=== PATIENT | male | born 1955 | race Caucasian/White ===

== ENCOUNTER 2018-12-06 18:48 | Inpatient (IN) | payer OTHER, BC ==
[2018-12-06 19:22] LABS: ADD MAN DIFF? NO
[2018-12-06 19:27] LABS: BASOPHIL # 0.1 10^3/ul (0.0-0.1); BASOPHILS % 0.3 % (0.0-2.0); EOSINOPHILS # 0.1 10^3/ul (0.0-0.5); EOSINOPHILS % 0.2 % (0.0-7.0); HEMATOCRIT 41.2 % (42.0-52.0); HEMOGLOBIN 13.7 g/dl (14.0-18.0); LYMPHOCYTES # 0.7 10^3/ul (0.8-2.9); LYMPHOCYTES % 3.2 % (15.0-51.0); MEAN CORPUSCULAR HEMOGLOBIN 30.8 pg (29.0-33.0); MEAN CORPUSCULAR HGB CONC 33.3 g/dl (32.0-37.0); MEAN CORPUSCULAR VOLUME 92.6 fl (82.0-101.0); MEAN PLATELET VOLUME 9.6 fl (7.4-10.4); MONOCYTE # 1.4 10^3/ul (0.3-0.9); MONOCYTES % 6.7 % (0.0-11.0); NEUTROPHIL # 18.3 10^3/ul (1.6-7.5); NEUTROPHILS % 89.1 % (39.0-77.0); PLATELET COUNT 291 10^3/UL (140-415); RED BLOOD COUNT 4.45 10^6/ul (4.70-6.10); RED CELL DISTRIBUTION WIDTH 12.4 % (11.5-14.5)
[2018-12-06 19:27] LABS: WHITE BLOOD COUNT 20.6 10^3/ul (4.8-10.8)
[2018-12-06] MEDS: SODIUM CHLORIDE 0.9% 1L BAG IV* (19:37)
[2018-12-06] MEDS: CEFTRIAXONE 1 GM/50 ML (PMX) 50 ML IVPB (19:38)
[2018-12-06] MEDS: ACETAMINOPHEN 325 MG TAB PO (19:38)
[2018-12-06 19:44] LABS: ALANINE AMINOTRANSFERASE 15 IU/L (13-69); ALBUMIN 4.7 g/dl (3.3-4.9); ALBUMIN/GLOBULIN RATIO 1.27; ALKALINE PHOSPHATASE 84 IU/L (42-121); ANION GAP 12 (5-13); ASPARTATE AMINO TRANSFERASE 22 IU/L (15-46); BILIRUBIN,INDIRECT 0.5 mg/dl (0-1.1); BILIRUBIN,TOTAL 0.5 mg/dl (0.2-1.3); BLOOD UREA NITROGEN 16 mg/dl (7-20); CALCIUM 9.5 mg/dl (8.4-10.2); CARBON DIOXIDE 26 mmol/L (21-31); CHLORIDE 100 mmol/L (97-110); CREATININE 1.15 mg/dl (0.61-1.24); Estimated GFR > 60 mL/min (>60); GLUCOSE 98 mg/dl (70-220); POTASSIUM 4.4 mmol/L (3.5-5.1); SODIUM 138 mmol/L (135-144); TOTAL PROTEIN 8.4 g/dl (6.1-8.1)
[2018-12-06 19:48] LABS: INR 0.88; PT RATIO 0.9
[2018-12-06 19:49] LABS: PARTIAL THROMBOPLASTIN TIME 25.7 Sec (23.0-35.0)
[2018-12-06 19:55] LABS: TROPONIN-I < 0.012 ng/ml (0.000-0.120)
[2018-12-06 19:59] LABS: ADD UMIC NO; UR ASCORBIC ACID NEGATIVE (NEGATIVE); UR BILIRUBIN (Dip) NEGATIVE (NEGATIVE); UR BLOOD (Dip) NEGATIVE (NEGATIVE); UR CLARITY CLEAR (CLEAR); UR COLOR STRAW (YELLOW); UR GLUCOSE (Dip) NEGATIVE (NEGATIVE); UR KETONES (Dip) TRACE mg/dL (NEGATIVE); UR LEUKOCYTE ESTERASE (Dip) NEGATIVE Leu/ul (NEGATIVE); UR NITRITE (Dip) NEGATIVE (NEGATIVE); UR SPECIFIC GRAVITY (Dip) 1.012 (1.003-1.030); UR TOTAL PROTEIN (Dip) NEGATIVE (NEGATIVE); UR UROBILINOGEN (Dip) NEGATIVE (NEGATIVE)
[2018-12-06] MEDS ORDERED: ONDANSETRON 4 MG INJ IV (20:30)
[2018-12-06] MEDS: BELLADONNA/PHENOBARBITAL TAB PO (20:37)
[2018-12-06] MEDS: AZITHROMYCIN 500MG/NS (PMX) 250 ML IVPB (20:51)
[2018-12-06] MEDS: LIDOCAINE/MYLANTA 40 ML BTL PO (20:51)
[2018-12-07] MEDS ORDERED: NACL 0.9% 3 ML SYG IV
[2018-12-07] MEDS ORDERED: IPRATROPIUM (NEB) 0.5 MG/2.5 ML AMP NEB
[2018-12-07] MEDS ORDERED: ZOLPIDEM 5 MG TAB PO
[2018-12-07] MEDS: SOD CHLORIDE 0.9% 1,000 ML IV ×2 (00:09→10:36)
[2018-12-07 00:34] LABS: LACTIC ACID 0.8 mmol/L (0.5-2.0)
[2018-12-07] MEDS: DIPHENHYDRAMINE 50 MG CAP PO (01:18)
[2018-12-07] MEDS: ACETAMINOPHEN 325 MG TAB PO ×4 (01:40→21:43)
[2018-12-07] MEDS: CEFTRIAXONE 1 GM/50 ML (PMX) 50 ML IVPB (06:00)
[2018-12-07] MEDS: PANTOPRAZOLE (EC) 40 MG TAB PO (06:00)
[2018-12-07 06:23] LABS: ADD MAN DIFF? NO
[2018-12-07 06:31] LABS: WHITE BLOOD COUNT 22.9 10^3/ul (4.8-10.8)
[2018-12-07 06:31] LABS: ABNORMAL IP MESSAGE 1; BASOPHILS % 0.2 % (0.0-2.0); HEMATOCRIT 37.3 % (42.0-52.0); HEMOGLOBIN 12.2 g/dl (14.0-18.0); LYMPHOCYTES # 0.3 10^3/ul (0.8-2.9); LYMPHOCYTES % 1.2 % (15.0-51.0); MEAN CORPUSCULAR HEMOGLOBIN 30.8 pg (29.0-33.0); MEAN CORPUSCULAR HGB CONC 32.7 g/dl (32.0-37.0); MEAN CORPUSCULAR VOLUME 94.2 fl (82.0-101.0); MEAN PLATELET VOLUME 10.3 fl (7.4-10.4); MONOCYTE # 1.3 10^3/ul (0.3-0.9); MONOCYTES % 5.4 % (0.0-11.0); NEUTROPHIL # 21.2 10^3/ul (1.6-7.5); NEUTROPHILS % 92.3 % (39.0-77.0); PLATELET COUNT 225 10^3/UL (140-415); POSITIVE DIFF @See below; RED BLOOD COUNT 3.96 10^6/ul (4.70-6.10); RED CELL DISTRIBUTION WIDTH 12.3 % (11.5-14.5)
[2018-12-07 06:59] LABS: ALANINE AMINOTRANSFERASE 16 IU/L (13-69); ALBUMIN 3.6 g/dl (3.3-4.9); ALBUMIN/GLOBULIN RATIO 1.24; ALKALINE PHOSPHATASE 54 IU/L (42-121); ANION GAP 8 (5-13); ASPARTATE AMINO TRANSFERASE 18 IU/L (15-46); BLOOD UREA NITROGEN 13 mg/dl (7-20); CALCIUM 8.4 mg/dl (8.4-10.2); CARBON DIOXIDE 27 mmol/L (21-31); CHLORIDE 104 mmol/L (97-110); CREATININE 0.99 mg/dl (0.61-1.24); Estimated GFR > 60 mL/min (>60); GLUCOSE 93 mg/dl (70-220); MAGNESIUM 2.1 mg/dl (1.7-2.5); PHOSPHORUS 4.6 mg/dl (2.5-4.9); POTASSIUM 4.9 mmol/L (3.5-5.1); SODIUM 139 mmol/L (135-144); TOTAL PROTEIN 6.5 g/dl (6.1-8.1)
[2018-12-07] MEDS: HEPARIN 5,000 UNIT/1 ML VIAL SC ×2 (08:31→20:32)
[2018-12-07] MEDS ORDERED: NON-FORMULARY/PATIENT OWN MED (Omeprazole* (Prilosec*) 20 MG) PO (09:00)
[2018-12-07 10:23] LABS: HAAIG REFLEX REFLEX FILED
[2018-12-07] MEDS ORDERED: VANCOMYCIN IV PER PHARMACY XX (10:30)
[2018-12-07] MEDS: LEVOFLOXACIN 500MG/D5W (PMX) 100 ML IVPB (10:37)
[2018-12-07] MEDS: LISINOPRIL 20 MG TAB PO (10:56)
[2018-12-07] MEDS ORDERED: LEVOFLOXACIN 750MG/D5W (PMX) 150 ML IVPB (11:00)
[2018-12-07 11:16] LABS: HEPATITIS B SURFACE ANTIGEN NEGATIVE (NEGATIVE)
[2018-12-07 11:34] LABS: HEPATITIS B CORE ANTIBODY NEGATIVE (NEGATIVE); HEPATITIS C VIRAL ANTIBODY NEGATIVE (NEGATIVE); HIV 1&2 ANTIBODY NEGATIVE (NEGATIVE)
[2018-12-07] MEDS: VANCOMYCIN HCL 1.5 GM in SOD CHLORIDE 0.9% 250 ML IVPB (12:41)
[2018-12-07] MEDS: ONDANSETRON 4 MG INJ IV (13:25)
[2018-12-07] MEDS: IBUPROFEN 400 MG TAB PO (20:31)
[2018-12-07] MEDS: ATORVASTATIN 10 MG TAB PO (20:31)
[2018-12-07] MEDS ORDERED: AZITHROMYCIN 500MG/NS (PMX) 250 ML IVPB (21:00)
[2018-12-07] MEDS: DIPHENHYDRAMINE 25 MG CAP PO (21:43)
[2018-12-08] MEDS: VANCOMYCIN 1 GM 250 ML IVPB ×2 (00:32→12:57)
[2018-12-08] MEDS: PANTOPRAZOLE (EC) 40 MG TAB PO (05:42)
[2018-12-08 05:45] LABS: ADD MAN DIFF? NO; BASOPHILS % 0.2 % (0.0-2.0); EOSINOPHILS % 0.1 % (0.0-7.0); HEMATOCRIT 34.5 % (42.0-52.0); HEMOGLOBIN 11.3 g/dl (14.0-18.0); LYMPHOCYTES # 0.6 10^3/ul (0.8-2.9); LYMPHOCYTES % 3.6 % (15.0-51.0); MEAN CORPUSCULAR HEMOGLOBIN 30.8 pg (29.0-33.0); MEAN CORPUSCULAR HGB CONC 32.8 g/dl (32.0-37.0); MEAN PLATELET VOLUME 10.8 fl (7.4-10.4); MONOCYTE # 1.2 10^3/ul (0.3-0.9); MONOCYTES % 6.6 % (0.0-11.0); NEUTROPHIL # 15.4 10^3/ul (1.6-7.5); NEUTROPHILS % 88.4 % (39.0-77.0); PLATELET COUNT 191 10^3/UL (140-415); RED BLOOD COUNT 3.67 10^6/ul (4.70-6.10); RED CELL DISTRIBUTION WIDTH 12.9 % (11.5-14.5)
[2018-12-08 05:45] LABS: WHITE BLOOD COUNT 17.5 10^3/ul (4.8-10.8)
[2018-12-08] MEDS: SOD CHLORIDE 0.9% 1,000 ML IV ×2 (05:47→12:10)
[2018-12-08 06:34] LABS: ANION GAP 10 (5-13); BLOOD UREA NITROGEN 15 mg/dl (7-20); CALCIUM 8.1 mg/dl (8.4-10.2); CARBON DIOXIDE 27 mmol/L (21-31); CHLORIDE 102 mmol/L (97-110); CREATININE 1.38 mg/dl (0.61-1.24); Estimated GFR 52 mL/min (>60); GLUCOSE 114 mg/dl (70-220); MAGNESIUM 2.1 mg/dl (1.7-2.5); PHOSPHORUS 3.5 mg/dl (2.5-4.9); POTASSIUM 4.2 mmol/L (3.5-5.1); SODIUM 139 mmol/L (135-144)
[2018-12-08] MEDS: ACETAMINOPHEN 325 MG TAB PO ×3 (08:04→20:31)
[2018-12-08] MEDS: HEPARIN 5,000 UNIT/1 ML VIAL SC ×2 (08:06→20:25)
[2018-12-08] MEDS: LISINOPRIL 20 MG TAB PO (08:08)
[2018-12-08] MEDS: ASPIRIN 81 MG TAB PO (08:11)
[2018-12-08] MEDS: CHOLECALCIFEROL 1,000 UNIT TAB PO (08:11)
[2018-12-08] MEDS: LEVOFLOXACIN 500MG/D5W (PMX) 100 ML IVPB (10:02)
[2018-12-08] MEDS: CEFTRIAXONE 2 GM/50 ML (PMX) 50 ML IVPB (15:19)
[2018-12-08] MEDS ORDERED: DIPHENHYDRAMINE 25 MG CAP (20:01)
[2018-12-08] MEDS: ATORVASTATIN 10 MG TAB PO (20:30)
[2018-12-09] MEDS: SOD CHLORIDE 0.9% 1,000 ML IV ×2 (01:47→23:26)
[2018-12-09] MEDS: ACETAMINOPHEN 325 MG TAB PO ×2 (02:09→18:52)
[2018-12-09 06:09] LABS: ADD MAN DIFF? NO
[2018-12-09] MEDS: PANTOPRAZOLE (EC) 40 MG TAB PO (06:09)
[2018-12-09 06:14] LABS: BASOPHILS % 0.1 % (0.0-2.0); EOSINOPHILS # 0.1 10^3/ul (0.0-0.5); EOSINOPHILS % 0.5 % (0.0-7.0); HEMATOCRIT 33.2 % (42.0-52.0); HEMOGLOBIN 10.9 g/dl (14.0-18.0); LYMPHOCYTES # 0.7 10^3/ul (0.8-2.9); LYMPHOCYTES % 4.5 % (15.0-51.0); MEAN CORPUSCULAR HGB CONC 32.8 g/dl (32.0-37.0); MEAN CORPUSCULAR VOLUME 94.3 fl (82.0-101.0); MEAN PLATELET VOLUME 10.9 fl (7.4-10.4); MONOCYTE # 1.3 10^3/ul (0.3-0.9); MONOCYTES % 8.8 % (0.0-11.0); NEUTROPHIL # 12.6 10^3/ul (1.6-7.5); NEUTROPHILS % 85.6 % (39.0-77.0); PLATELET COUNT 182 10^3/UL (140-415); RED BLOOD COUNT 3.52 10^6/ul (4.70-6.10); RED CELL DISTRIBUTION WIDTH 12.8 % (11.5-14.5)
[2018-12-09 06:14] LABS: WHITE BLOOD COUNT 14.7 10^3/ul (4.8-10.8)
[2018-12-09 07:00] LABS: ANION GAP 10 (5-13); BLOOD UREA NITROGEN 10 mg/dl (7-20); CALCIUM 8.4 mg/dl (8.4-10.2); CARBON DIOXIDE 27 mmol/L (21-31); CHLORIDE 104 mmol/L (97-110); CREATININE 1.04 mg/dl (0.61-1.24); Estimated GFR > 60 mL/min (>60); GLUCOSE 106 mg/dl (70-220); MAGNESIUM 2.2 mg/dl (1.7-2.5); PHOSPHORUS 2.8 mg/dl (2.5-4.9); POTASSIUM 3.7 mmol/L (3.5-5.1); SODIUM 141 mmol/L (135-144)
[2018-12-09] MEDS: CHOLECALCIFEROL 1,000 UNIT TAB PO (09:13)
[2018-12-09] MEDS: ASPIRIN 81 MG TAB PO (09:13)
[2018-12-09] MEDS: LISINOPRIL 20 MG TAB PO (09:13)
[2018-12-09] MEDS: HEPARIN 5,000 UNIT/1 ML VIAL SC ×2 (09:21→20:15)
[2018-12-09] MEDS ORDERED: DIPHENHYDRAMINE 50 MG CAP PO (13:30)
[2018-12-09] MEDS: CEFTRIAXONE 2 GM/50 ML (PMX) 50 ML IVPB (14:25)
[2018-12-09] MEDS: FLUTICASONE 0.05% 16 GM NAS SPRAY NASAL ×2 (14:25→23:00)
[2018-12-09] MEDS: ALPRAZOLAM 0.25 MG TAB PO (20:10)
[2018-12-09] MEDS: ATORVASTATIN 10 MG TAB PO (20:10)
[2018-12-10] MEDS: PANTOPRAZOLE (EC) 40 MG TAB PO (05:43)
[2018-12-10 06:05] LABS: ADD MAN DIFF? NO
[2018-12-10 06:19] LABS: WHITE BLOOD COUNT 11.4 10^3/ul (4.8-10.8)
[2018-12-10 06:19] LABS: BASOPHILS % 0.3 % (0.0-2.0); EOSINOPHILS # 0.2 10^3/ul (0.0-0.5); EOSINOPHILS % 1.8 % (0.0-7.0); HEMATOCRIT 33.7 % (42.0-52.0); HEMOGLOBIN 11.2 g/dl (14.0-18.0); LYMPHOCYTES # 0.7 10^3/ul (0.8-2.9); LYMPHOCYTES % 6.3 % (15.0-51.0); MEAN CORPUSCULAR HEMOGLOBIN 30.8 pg (29.0-33.0); MEAN CORPUSCULAR HGB CONC 33.2 g/dl (32.0-37.0); MEAN CORPUSCULAR VOLUME 92.6 fl (82.0-101.0); MEAN PLATELET VOLUME 10.9 fl (7.4-10.4); MONOCYTE # 1.2 10^3/ul (0.3-0.9); MONOCYTES % 10.7 % (0.0-11.0); NEUTROPHIL # 9.1 10^3/ul (1.6-7.5); NEUTROPHILS % 80.2 % (39.0-77.0); PLATELET COUNT 235 10^3/UL (140-415); RED BLOOD COUNT 3.64 10^6/ul (4.70-6.10); RED CELL DISTRIBUTION WIDTH 12.4 % (11.5-14.5)
[2018-12-10 06:43] LABS: ANION GAP 9 (5-13); BLOOD UREA NITROGEN 7 mg/dl (7-20); CALCIUM 8.6 mg/dl (8.4-10.2); CARBON DIOXIDE 28 mmol/L (21-31); CHLORIDE 104 mmol/L (97-110); CREATININE 0.92 mg/dl (0.61-1.24); Estimated GFR > 60 mL/min (>60); GLUCOSE 100 mg/dl (70-220); MAGNESIUM 2.1 mg/dl (1.7-2.5); PHOSPHORUS 3.3 mg/dl (2.5-4.9); POTASSIUM 3.3 mmol/L (3.5-5.1); SODIUM 141 mmol/L (135-144)
[2018-12-10] MEDS: LISINOPRIL 20 MG TAB PO (09:45)
[2018-12-10] MEDS: ASPIRIN 81 MG TAB PO (09:45)
[2018-12-10] MEDS: CHOLECALCIFEROL 1,000 UNIT TAB PO (09:45)
[2018-12-10] MEDS: FLUTICASONE 0.05% 16 GM NAS SPRAY NASAL ×2 (09:45→20:12)
[2018-12-10] MEDS: HEPARIN 5,000 UNIT/1 ML VIAL SC ×2 (09:46→20:12)
[2018-12-10] MEDS: POTASSIUM CHLORIDE (SR) 20 MEQ TAB PO (11:14)
[2018-12-10] MEDS: GUAIFENESIN/DM 5ML CUP PO ×2 (11:14→18:16)
[2018-12-10] MEDS: ACETAMINOPHEN 325 MG TAB PO (14:56)
[2018-12-10] MEDS: CEFTRIAXONE 2 GM/50 ML (PMX) 50 ML IVPB (15:45)
[2018-12-10] MEDS: ATORVASTATIN 10 MG TAB PO (20:12)
[2018-12-10] MEDS: ALPRAZOLAM 0.25 MG TAB PO (20:12)
[2018-12-10] MEDS: APIXABAN 5 MG TABLET PO (23:05)
[2018-12-10] MEDS: ONDANSETRON 4 MG INJ IV (23:09)
[2018-12-11] MEDS: PANTOPRAZOLE (EC) 40 MG TAB PO (05:35)
[2018-12-11] MEDS: ALPRAZOLAM 0.25 MG TAB PO ×3 (05:38→22:23)
[2018-12-11] MEDS: ONDANSETRON 4 MG INJ IV (05:38)
[2018-12-11] MEDS: BENZONATATE 100 MG CAP PO ×3 (05:47→22:23)
[2018-12-11 06:11] LABS: ADD MAN DIFF? NO
[2018-12-11 06:16] LABS: WHITE BLOOD COUNT 11.5 10^3/ul (4.8-10.8)
[2018-12-11 06:16] LABS: ABNORMAL IP MESSAGE 1; BASOPHILS % 0.3 % (0.0-2.0); EOSINOPHILS # 0.2 10^3/ul (0.0-0.5); EOSINOPHILS % 1.3 % (0.0-7.0); HEMATOCRIT 32.4 % (42.0-52.0); HEMOGLOBIN 10.7 g/dl (14.0-18.0); LYMPHOCYTES # 0.8 10^3/ul (0.8-2.9); LYMPHOCYTES % 7.2 % (15.0-51.0); MEAN CORPUSCULAR HEMOGLOBIN 30.4 pg (29.0-33.0); MEAN PLATELET VOLUME 10.4 fl (7.4-10.4); MONOCYTE # 1.9 10^3/ul (0.3-0.9); MONOCYTES % 16.4 % (0.0-11.0); NEUTROPHIL # 8.4 10^3/ul (1.6-7.5); NEUTROPHILS % 73.8 % (39.0-77.0); PLATELET COUNT 251 10^3/UL (140-415); POSITIVE DIFF @See below; RED BLOOD COUNT 3.52 10^6/ul (4.70-6.10); RED CELL DISTRIBUTION WIDTH 12.4 % (11.5-14.5)
[2018-12-11 06:49] LABS: ALBUMIN 2.9 g/dl (3.3-4.9); ANION GAP 7 (5-13); BLOOD UREA NITROGEN 7 mg/dl (7-20); CALCIUM 8.4 mg/dl (8.4-10.2); CARBON DIOXIDE 29 mmol/L (21-31); CHLORIDE 103 mmol/L (97-110); CREATININE 0.89 mg/dl (0.61-1.24); GLUCOSE 103 mg/dl (70-220); POTASSIUM 4.1 mmol/L (3.5-5.1); SODIUM 139 mmol/L (135-144)
[2018-12-11] MEDS: CHOLECALCIFEROL 1,000 UNIT TAB PO (09:09)
[2018-12-11] MEDS: APIXABAN 5 MG TABLET PO ×2 (09:09→20:25)
[2018-12-11] MEDS: FLUTICASONE 0.05% 16 GM NAS SPRAY NASAL ×2 (09:09→20:25)
[2018-12-11] MEDS: LISINOPRIL 20 MG TAB PO (09:11)
[2018-12-11] MEDS: LIDOCAINE 1% (MPF) 5 ML VIAL SC (11:11)
[2018-12-11] MEDS: CEFTRIAXONE 2 GM/50 ML (PMX) 50 ML IVPB (16:00)
[2018-12-11] MEDS: METOPROLOL (XL) 50 MG TAB PO (17:15)
[2018-12-11] MEDS: ATORVASTATIN 10 MG TAB PO (20:25)
[2018-12-11] MEDS: ACETAMINOPHEN 325 MG TAB PO (20:26)
[2018-12-12] MEDS: PANTOPRAZOLE (EC) 40 MG TAB PO (05:48)
[2018-12-12 06:28] LABS: ADD MAN DIFF? NO
[2018-12-12 06:35] LABS: ABNORMAL IP MESSAGE 1; BASOPHIL # 0.1 10^3/ul (0.0-0.1); BASOPHILS % 0.6 % (0.0-2.0); EOSINOPHILS # 0.2 10^3/ul (0.0-0.5); HEMOGLOBIN 10.3 g/dl (14.0-18.0); LYMPHOCYTES # 0.7 10^3/ul (0.8-2.9); MEAN CORPUSCULAR HEMOGLOBIN 30.9 pg (29.0-33.0); MEAN CORPUSCULAR HGB CONC 33.2 g/dl (32.0-37.0); MEAN CORPUSCULAR VOLUME 93.1 fl (82.0-101.0); MEAN PLATELET VOLUME 9.9 fl (7.4-10.4); MONOCYTES % 18.3 % (0.0-11.0); NEUTROPHIL # 7.8 10^3/ul (1.6-7.5); NEUTROPHILS % 71.2 % (39.0-77.0); PLATELET COUNT 279 10^3/UL (140-415); POSITIVE DIFF @See below; RED BLOOD COUNT 3.33 10^6/ul (4.70-6.10); RED CELL DISTRIBUTION WIDTH 12.1 % (11.5-14.5)
[2018-12-12 06:55] LABS: ALBUMIN 3.1 g/dl (3.3-4.9); ANION GAP 8 (5-13); BLOOD UREA NITROGEN 6 mg/dl (7-20); CALCIUM 8.5 mg/dl (8.4-10.2); CARBON DIOXIDE 31 mmol/L (21-31); CHLORIDE 102 mmol/L (97-110); GLUCOSE 102 mg/dl (70-220); MAGNESIUM 2.2 mg/dl (1.7-2.5); PHOSPHORUS 4.4 mg/dl (2.5-4.9); POTASSIUM 3.9 mmol/L (3.5-5.1); SODIUM 141 mmol/L (135-144)
[2018-12-12] MEDS: ALPRAZOLAM 0.25 MG TAB PO (08:06)
[2018-12-12] MEDS: CHOLECALCIFEROL 1,000 UNIT TAB PO (08:07)
[2018-12-12] MEDS: METOPROLOL (XL) 50 MG TAB PO (08:07)
[2018-12-12] MEDS: LISINOPRIL 20 MG TAB PO (08:07)
[2018-12-12] MEDS: BENZONATATE 100 MG CAP PO (08:07)
[2018-12-12] MEDS: APIXABAN 5 MG TABLET PO (08:08)
[2018-12-12] MEDS: FLUTICASONE 0.05% 16 GM NAS SPRAY NASAL (08:08)
[2018-12-12] MEDS: CEFTRIAXONE 2 GM/50 ML (PMX) 50 ML IVPB (15:28)
== END 2018-12-12 16:55 | disposition home health service (06) | DRG 871 ==
LOC: E/R 18:48 → PP2 20:30
PROC: 02HV33Z Insertion of Infusion Device into Superior Vena Cava, Percutaneous Approach (ICD-10-PCS; principal; 2018-12-12)
DX: A40.8 Other streptococcal sepsis (principal); I33.9 Acute and subacute endocarditis, unspecified; N17.9 Acute kidney failure, unspecified; J20.9 Acute bronchitis, unspecified; D64.9 Anemia, unspecified; I10 Essential (primary) hypertension; M16.0 Bilateral primary osteoarthritis of hip; M17.0 Bilateral primary osteoarthritis of knee; E78.5 Hyperlipidemia, unspecified; G47.00 Insomnia, unspecified; R09.82 Postnasal drip; I48.0 Paroxysmal atrial fibrillation; Z85.46 Personal history of malignant neoplasm of prostate
CPT/HCPCS: 36415; 36569; 70486; 71045; 73520; 73562; 76937; 80048; 80053; 80069; 81003; 82962; 83605; 83735; 84100; 84484; 85025; 85610; 85730; 86703; 86704; 86709; 86803; 87040-91; 87086; 87340; 87400; 93005; 93306; 93308; 96374; 99285-25

== ENCOUNTER 2018-12-14 09:04 | Emergency (ER) | payer OTHER ==
[2018-12-14] MEDS ORDERED: LIDOCAINE 1% (MPF) 5 ML VIAL SC (10:00)
[2018-12-14 10:48] LABS: ADD MAN DIFF? NO
[2018-12-14 10:54] LABS: ABNORMAL IP MESSAGE 1; BASOPHIL # 0.1 10^3/ul (0.0-0.1); BASOPHILS % 0.4 % (0.0-2.0); EOSINOPHILS # 0.2 10^3/ul (0.0-0.5); EOSINOPHILS % 1.3 % (0.0-7.0); HEMATOCRIT 34.4 % (42.0-52.0); HEMOGLOBIN 11.6 g/dl (14.0-18.0); LYMPHOCYTES # 0.7 10^3/ul (0.8-2.9); LYMPHOCYTES % 6.2 % (15.0-51.0); MEAN CORPUSCULAR HEMOGLOBIN 30.2 pg (29.0-33.0); MEAN CORPUSCULAR HGB CONC 33.7 g/dl (32.0-37.0); MEAN CORPUSCULAR VOLUME 89.6 fl (82.0-101.0); MEAN PLATELET VOLUME 9.8 fl (7.4-10.4); MONOCYTE # 1.8 10^3/ul (0.3-0.9); MONOCYTES % 15.6 % (0.0-11.0); NEUTROPHIL # 8.7 10^3/ul (1.6-7.5); NEUTROPHILS % 74.7 % (39.0-77.0); PLATELET COUNT 418 10^3/UL (140-415); POSITIVE DIFF @See below; RED BLOOD COUNT 3.84 10^6/ul (4.70-6.10)
[2018-12-14 10:54] LABS: WHITE BLOOD COUNT 11.7 10^3/ul (4.8-10.8)
[2018-12-14 11:14] LABS: ANION GAP 10 (5-13); BLOOD UREA NITROGEN 9 mg/dl (7-20); CALCIUM 8.9 mg/dl (8.4-10.2); CARBON DIOXIDE 29 mmol/L (21-31); CHLORIDE 100 mmol/L (97-110); CREATININE 0.94 mg/dl (0.61-1.24); Estimated GFR > 60 mL/min (>60); GLUCOSE 150 mg/dl (70-220); POTASSIUM 3.5 mmol/L (3.5-5.1); SODIUM 139 mmol/L (135-144)
== END 2018-12-14 12:46 | disposition home or self-care (01) ==
LOC: E/R 09:04
DX: L03.114 Cellulitis of left upper limb (principal); I10 Essential (primary) hypertension; Y71.2 Prosthetic and other implants, materials and accessory cardiovascular devices associated with adverse incidents; Z79.01 Long term (current) use of anticoagulants
CPT/HCPCS: 36415; 80048; 85025; 87040-91; 87070; 93971; 99284-25

== ENCOUNTER → 2018-12-17 | Outpatient (CLI) | payer OTHER ==
[2018-12-17] MEDS: LIDOCAINE 1% (MPF) 5 ML VIAL SC (11:30)
== END | disposition home or self-care (01) ==
LOC: RAD 09:15
DX: I38 Endocarditis, valve unspecified (principal)
CPT/HCPCS: 36569; 71045; 76937; 93971